=== PATIENT | male | born 1985 | race Caucasian/White ===

== ENCOUNTER → 2021-06-02 13:31 | Outpatient (BNVA) | payer BC, SELFPAY | PROVIDERS: PCP Nurse Practitioner Family; Visit Provider Surgery | DX: Z20.822 Contact with and (suspected) exposure to COVID-19 (principal) | CPT/HCPCS: 87635 ==

== ENCOUNTER → 2021-07-01 11:05 | Outpatient (BNVA) | payer BC, SELFPAY | PROVIDERS: PCP Nurse Practitioner Family; Visit Provider Surgery | DX: Z01.812 Encounter for preprocedural laboratory examination (principal); Z20.822 Contact with and (suspected) exposure to COVID-19 | CPT/HCPCS: 87635 ==

== ENCOUNTER 2021-07-06 06:13 | Day surgery (SDC) | payer BC, SELFPAY ==
[2021-06-03 12:37] VITALS: BMI 29.1
[2021-07-04 10:08] VITALS: BMI 29.1
[2021-07-06 06:31] VITALS: BP 128/97; PULSE 73; RESP 18; TEMP 36.1; O2SAT 97
[2021-07-06] MEDS: sodium chloride 0.9% 1,000 ML 30 ML IV (06:38)
--- NOTE | 2021-07-06 06:53 | ANES.PREANE2 ---
Pre-Anesthetic Assessment Height/Weight: Height 1.83 m Weight 97.522 kg Temp Pulse Resp BP Pulse Ox 97 F L 73 18 128/97 97 07/06/21 06:31 07/06/21 06:31 07/06/21 06:31 07/06/21 06:31 07/06/21 06:31 Preop Diagnosis: upper gi symptoms Operation Date: 06/08/21 13:30 Proposed Procedures p EGD Balloon Dilation [id number]/k21.9(Not Applicable) - José Manuel Soto MD Operation Date: 07/06/21 07:30 Proposed Procedures p EGD Dilation W/ Balloon(Not Applicable) - José Manuel Soto MD Familial anesthetic complications: none Was Beta Juni taken within 24 hours: N/A Was Clonidine taken within 24 hours: N/A Last intake: Intake Last Liquid Date 07/05/21 Last Liquid Time 18:00 Last Solid Date 07/05/21 Last Solid Time 18:00 Social Tobacco and No alcohol 1 pack(s) per day Exam alert, oriented x 3, clear to auscultation bilaterally and regular rate & rhythm Airway Submandibular: within normal limits Cervical ROM: within normal limits Mallampati: Class II Dentition: full Pulmonary None reported CV/HEM Hypertension None reported Hepatic None reported GI Gastroesophageal Reflux Disease Metabolic None reported Musc/skel None reported Neuropsych Depression Anesthetic Plan ASA status: 2 Anesthesia: MAC Medications/Allergies Home Medications Medication Instructions Recorded Confirmed Last Taken Type cetirizine 10 mg tablet (Zyrtec) 10 mg PO DAILY 05/31/21 07/04/21 07/05/21 History lisinopril 20 mg tablet 20 mg PO DAILY 05/31/21 07/04/21 07/05/21 History ascorbic acid (vitamin C) 1,000 mg 1,000 mg PO DAILY 06/03/21 07/04/21 07/05/21 History tablet (Vitamin C) omega-3 fatty acids 1 cap PO DAILY 06/03/21 07/04/21 07/05/21 History esomeprazole magnesium 20 mg 20 mg PO DAILY 07/04/21 07/04/21 07/05/21 History capsule,delayed release (Nexium) sertraline 100 mg tablet (Zoloft) 100 mg PO DAILY 07/04/21 07/04/21 07/05/21 History Allergies Allergy/AdvReac Type Severity Reaction Status Date / Time Penicillins Allergy Severe Unknown Verified 07/04/21 10:03 Current Medications Generic Name Dose Route Start Last Admin Trade Name Freq PRN Reason Stop Dose Admin Sodium Chloride 1,000 mls @ 30 mls/hr 07/06/21 06:15 07/06/21 06:38 Sodium Chloride 0.9% IV 07/07/21 06:14 30 mls/hr .Q24H CEFERINO Administration PFSH Anesthesia Medical History (Updated 06/27/21 @ 10:36 by Halle Chakraborty) GERD (gastroesophageal reflux disease) Hypertension Psychiatric care Surgical History (Updated 05/31/21 @ 10:17 by José Manuel Soto MD) History of placement of ear tubes Family History (Updated 05/31/21 @ 10:11 by Sunshine Waddell) Other CAD (coronary artery disease) Cancer Diabetes Denies family history of Dementia Chronic kidney disease (CKD) Stroke Social History (Updated 05/31/21 @ 10:12 by Sunshine Waddell) Smoking and tobacco status: current every day smoker Alcohol intake: current Alcohol intake frequency: holidays/special occasions only Lives independently: Yes Household members: significant other and children Data Anesthesia Cardiac Studies: No Data to Display
--- NOTE | 2021-07-06 07:15 | W.PM.OPSFHP ---
Same Day Surgery H&P Indication for Procedure/HPI DATE OF PROCEDURE: July 06, 2021 CHIEF COMPLAINT/INDICATIONFOR SURGICAL PROCEDURE: EGD/GERD PREOP DIAGNOSIS: upper gi symptoms PLANNED PROCEDURE: Operation Date: 06/08/21 13:30 Proposed Procedures p EGD Balloon Dilation [id number]/k21.9(Not Applicable) - José Manuel Soto MD Operation Date: 07/06/21 07:30 Proposed Procedures p EGD Dilation W/ Balloon(Not Applicable) - José Manuel Stoo MD Medications/Allergies* Home Medications Medication Instructions Recorded Confirmed Type cetirizine 10 mg tablet (Zyrtec) 10 mg PO DAILY 05/31/21 07/04/21 History lisinopril 20 mg tablet 20 mg PO DAILY 05/31/21 07/04/21 History ascorbic acid (vitamin C) 1,000 mg 1,000 mg PO DAILY 06/03/21 07/04/21 History tablet (Vitamin C) omega-3 fatty acids 1 cap PO DAILY 06/03/21 07/04/21 History esomeprazole magnesium 20 mg 20 mg PO DAILY 07/04/21 07/04/21 History capsule,delayed release (Nexium) sertraline 100 mg tablet (Zoloft) 100 mg PO DAILY 07/04/21 07/04/21 History Allergies/Adverse Reactions Allergy/AdvReac Type Severity Reaction Status Date / Time Penicillins Allergy Severe Unknown Verified 07/04/21 10:03 Current Medications: Generic Name Dose Route Start Last Admin Trade Name Freq PRN Reason Stop Dose Admin Sodium Chloride 1,000 mls @ 30 mls/hr 07/06/21 06:15 07/06/21 06:38 Sodium Chloride 0.9% IV 07/07/21 06:14 30 mls/hr .Q24H CEFERINO Administration Pertinent History/Comorbid Conditions* Medical History (Updated 06/27/21 @ 10:36 by Halle Chakraborty) GERD (gastroesophageal reflux disease) Hypertension Psychiatric care Surgical History (Updated 05/31/21 @ 10:17 by José Manuel Soto MD) History of placement of ear tubes Family History (Updated 05/31/21 @ 10:11 by Sunshine Waddell) Diabetes CAD (coronary artery disease) Cancer Denies family history of Dementia Chronic kidney disease (CKD) Stroke Social History Smoking and tobacco status: current every day smoker Alcohol intake: current Alcohol intake frequency: holidays/special occasions only Lives independently: Yes Household members: significant other and children Pertinent Exam Findings alert, oriented x 3 and regular rate & rhythm Recommendations Surgery/Procedure today Coding Level of Care Code Acute Web Search Evaluator for Duglas Lam
[2021-07-06 07:31] VITALS: BP 99/64; PULSE 76; RESP 16; TEMP 36.4; O2SAT 95
--- NOTE | 2021-07-06 07:34 | ANE.PACU2 ---
Inpatient post-anesthesia follow up: Airway intact: Yes Vital signs: Temperature 97.5 F Pulse Rate 76 Respiratory Rate 16 Blood Pressure 99/64 Pulse Oximetry 95 Oxygen Delivery Me thod Nasal Cannula Oxygen Flow Rate 3 Fraction of Inspir ed Oxygen Hydration adequate: Yes Nausea and vomiting: No Pain level: 1 Mental status: Baseline
[2021-07-06 07:39] VITALS: BP 118/68; PULSE 72; RESP 18; O2SAT 95
== END 2021-07-06 07:47 | disposition home or self-care (01) ==
PROVIDERS: PCP Nurse Practitioner Family; Visit Provider Surgery
DX: K21.9 Gastro-esophageal reflux disease without esophagitis (principal); K20.90 Esophagitis, unspecified without bleeding
CPT/HCPCS: 43239; 88305; 88342; J2704; J7030